=== PATIENT | male | born 1965 | race Caucasian/White ===

== ENCOUNTER → 2020-12-08 00:29 | Outpatient (CLI) | payer BC, SELFPAY ==
[2020-12-08 19:48] LABS: SARS-CoV-2 RNA PCR Negative
== END ==
PROVIDERS: PCP Family Medicine; Visit Provider Internal Medicine Gastroenterology
DX: Z01.812 Encounter for preprocedural laboratory examination (principal); Z20.822 Contact with and (suspected) exposure to COVID-19
CPT/HCPCS: C9803; U0003; U0005

== ENCOUNTER 2020-12-11 01:12 | Day surgery (SDC) | payer BC, SELFPAY ==
[2020-11-16 13:40] VITALS: BMI 33.7
--- NOTE | 2020-12-10 13:21 | WPDANESEPP ---
Anes - Eval Pre Procedure Procedure: Operation Date: 12/11/20 07:30 Proposed Procedures p Screening Colonoscopy - Mayank Greenfield MD Date/Time: 12/10/20 13:21 Pre Op Diagnosis: Neoplasm Screening Patient Data Age: 55 Gender: M Height: 1.68 m Weight: 95 kg Allergies Allergy/AdvReac Type Severity Reaction Status Date / Time Penicillins Allergy Severe Swelling Verified 11/16/20 13:54 of Lip/Tongue/Throat Home Medications Medication Instructions Recorded Confirmed Type fluoxetine 20 mg capsule 20 mg PO DAILY #90 cap 06/27/20 11/16/20 Rx trazodone 50 mg tablet 50 mg PO . q.h.s. #90 tablet 06/27/20 11/16/20 Rx zolpidem 10 mg tablet 10 mg PO . q.h.s. PRN #90 tablet 06/27/20 11/16/20 Rx tadalafil 20 mg tablet 20 mg PO DAILY PRN #10 tablet 07/24/20 11/16/20 Rx fluticasone propionate 50 1 spray NASAL BID #16 ml 10/31/20 11/16/20 Rx mcg/actuation nasal spray,suspension sodium,potassium,mag sulfates See Rx Instructions .ROUTE 11/07/20 Rx [Suprep Bowel Prep Kit] .COMPLEX #1 ml Patient hx anesthesia problems: none Family hx anesthesia problems: none PMFSH Past Medical History Medical History Abnormal fasting glucose BMI 33.0-33.9,adult Chronic anxiety Chronic depression Colon cancer screening Encounter for prostate cancer screening Encounter for wellness examination in adult GERD (gastroesophageal reflux disease) History of alcoholism Insomnia Male erectile dysfunction, unspecified Mixed hyperlipidemia Obesity (BMI 35.0-39.9 without comorbidity) Obstructive sleep apnea on CPAP Seasonal allergic rhinitis Strain of muscle of right groin region Surgical History Surgical History History of repair of rotator cuff (~2014) Family History Family History Mother Breast cancer Diabetes mellitus Father Heart disease Sibling Obesity Sibling Hypertension Diabetes mellitus Social History Social History Smoking status: Never smoker Alcohol intake: never Substance use: never Substance use type: does not use Spiritual care concerns: No Exam Day of Procedure 12/10/20 13:21
[2020-12-11 06:18] VITALS: BP 127/81; PULSE 67; RESP 18; TEMP 35.9; O2SAT 99; BMI 33.7
[2020-12-11] MEDS: LACTATED RINGERS 1,000 ML 150 ML IV CONT (06:31)
--- NOTE | 2020-12-11 06:40 | WPDANESEPPF ---
Anes - Initial Pre Proc Eval Procedure: Operation Date: 12/11/20 07:30 Proposed Procedures p Screening Colonoscopy - Mayank Greenfield MD Date/Time: 12/11/20 06:40 Surgeon: aMyank Greenfield MD Pre Op Diagnosis: Neoplasm Screening Patient Data Age: 55 Gender: M Height: 5 ft 6 in Weight: 95 kg Last Vital Signs Temp 35.9 C L 12/11/20 06:18 Pulse 67 12/11/20 06:18 Resp 18 12/11/20 06:18 BP 127/81 12/11/20 06:18 Pulse Ox 99 12/11/20 06:18 Allergies Allergy/AdvReac Type Severity Reaction Status Date / Time Penicillins Allergy Severe Swelling Verified 12/11/20 06:17 of Lip/Tongue/Throat Home Medications Medication Instructions Recorded Confirmed Type fluoxetine 20 mg capsule 20 mg PO DAILY #90 cap 06/27/20 11/16/20 Rx trazodone 50 mg tablet 50 mg PO . q.h.s. #90 tablet 06/27/20 11/16/20 Rx zolpidem 10 mg tablet 10 mg PO . q.h.s. PRN #90 tablet 06/27/20 11/16/20 Rx tadalafil 20 mg tablet 20 mg PO DAILY PRN #10 tablet 07/24/20 11/16/20 Rx fluticasone propionate 50 1 spray NASAL BID #16 ml 10/31/20 11/16/20 Rx mcg/actuation nasal spray,suspension sodium,potassium,mag sulfates See Rx Instructions .ROUTE 11/07/20 Rx [Suprep Bowel Prep Kit] .COMPLEX #1 ml Patient hx anesthesia problems: none Family hx anesthesia problems: none PMFSH Past Medical History Medical History Abnormal fasting glucose BMI 33.0-33.9,adult Chronic anxiety Chronic depression Colon cancer screening Encounter for prostate cancer screening Encounter for wellness examination in adult GERD (gastroesophageal reflux disease) History of alcoholism Insomnia Male erectile dysfunction, unspecified Mixed hyperlipidemia Obesity (BMI 35.0-39.9 without comorbidity) Obstructive sleep apnea on CPAP Seasonal allergic rhinitis Strain of muscle of right groin region Surgical History Surgical History History of repair of rotator cuff (~2014) Family History Family History Mother Breast cancer Diabetes mellitus Father Heart disease Sibling Obesity Sibling Hypertension Diabetes mellitus Social History Social History Smoking status: Never smoker Alcohol intake: never Substance use: never Substance use type: does not use Living arrangements: with family Spiritual care concerns: No Anes - Eval Final PreProcedure Day of Procedure 12/11/20 06:40 Patient weight: obese Heart: regular rate and rhythm Lungs: clear to auscultation Airway: Mallampati scale class II Neurological: alert and oriented Last oral intake: >/= 8 hours ASA classification: III Emergent: no Anesthetic plan: proceed Anesthesia type and monitoring: general GIVS and standard monitoring Informed Consent: The patient's anesthetic plan and its attendant risks and benefits were discussed with the patient/family/POA. Questions were solicited and answers provided to the satisfaction of the patient/family/POA.
--- NOTE | 2020-12-11 07:44 | PM.HPGS ---
History of Present Illness History of Present Illness Consent: Risks, benefits, and alternatives have been discussed and questions answered. Patient agrees to proceed with procedure. Chief complaint: Neoplasm Screening Narrative: Chon Williamson is a 55 year old male here for screening colonoscopy, last one about 15 years ago for anal fissure Review of Systems Constitutional: Constitutional: Denies headache(s) and Denies weakness Eyes: Eyes: Denies blurry vision ENT: Reports Normal hearing present, Denies headache(s) and Denies neck pain Cardiovascular: Cardiovascular: Denies chest pain and Denies dyspnea Respiratory: Respiratory: Denies dyspnea Gastrointestinal: Gastrointestinal: Reports no additional gastrointestinal complaints Genitourinary: Genitourinary: Denies dysuria Musculoskeletal: Musculoskeletal: Denies neck pain Integumentary/Breasts: Skin/Breast: Denies dry skin Neurologic: Reports Normal hearing present, Denies headache(s) and Denies weakness Psychiatric: Psychiatric: Denies anxiety Endocrine: Endocrine: Denies change in body appearance Hematologic/Lymphatic: Hematologic/Lymphatic: Denies easy bleeding Allergic/Immunologic: Allergic/Immunologic: Denies urticaria PMFSH Past Medical History Medical History Abnormal fasting glucose BMI 33.0-33.9,adult Chronic anxiety Chronic depression Colon cancer screening Encounter for prostate cancer screening Encounter for wellness examination in adult GERD (gastroesophageal reflux disease) History of alcoholism Insomnia Male erectile dysfunction, unspecified Mixed hyperlipidemia Obesity (BMI 35.0-39.9 without comorbidity) Obstructive sleep apnea on CPAP Seasonal allergic rhinitis Strain of muscle of right groin region Surgical History Surgical History History of repair of rotator cuff (~2014) Family History Family History Mother Breast cancer Diabetes mellitus Father Heart disease Sibling Obesity Sibling Hypertension Diabetes mellitus Social History Social History Smoking status: Never smoker Alcohol intake: never Substance use: never Substance use type: does not use Living arrangements: with family Spiritual care concerns: No Meds Home Medications and Allergies Home Medications Medication Instructions Recorded Confirmed Type fluoxetine 20 mg capsule 20 mg PO DAILY #90 cap 06/27/20 11/16/20 Rx trazodone 50 mg tablet 50 mg PO . q.h.s. #90 tablet 06/27/20 11/16/20 Rx zolpidem 10 mg tablet 10 mg PO . q.h.s. PRN #90 tablet 06/27/20 11/16/20 Rx tadalafil 20 mg tablet 20 mg PO DAILY PRN #10 tablet 07/24/20 11/16/20 Rx fluticasone propionate 50 1 spray NASAL BID #16 ml 10/31/20 11/16/20 Rx mcg/actuation nasal spray,suspension sodium,potassium,mag sulfates See Rx Instructions .ROUTE 11/07/20 Rx [Suprep Bowel Prep Kit] .COMPLEX #1 ml Allergies Allergy/AdvReac Type Severity Reaction Status Date / Time Penicillins Allergy Severe Swelling Verified 12/11/20 06:17 of Lip/Tongue/Throat Vital Signs Vital Signs - 24 hr 12/11/20 06:18 Temperature 96.7 F L Pulse Rate 67 Respiratory Rate 18 Blood Pressure 127/81 Pulse Oximetry 99 Exam Const: General: comfortable and no acute distress HENMT: General nose exam: Normal nares present Eyes: General: appearance normal, both eyes and all related structures Neck: Neck: no JVD Resp: Auscultation: clear to auscultation bilaterally Cardio: Rate: regular rate Rhythm: regular rhythm GI: Inspection: non-distended GI Palp: Yes Soft to palpation Skin: General skin exam: normal color Neuro: General: gait normal Speech: normal speech Extrem: General: normal to inspection Psych: Mental Status: m
[2020-12-11 08:01] VITALS: BP 98/66; PULSE 68; RESP 27; O2SAT 98
[2020-12-11 08:11] VITALS: BP 106/74; PULSE 70; RESP 23; O2SAT 99
[2020-12-11 08:21] VITALS: BP 111/73; PULSE 63; RESP 21; O2SAT 98
== END 2020-12-11 08:33 | disposition home or self-care (01) ==
PROVIDERS: PCP Family Medicine; Visit Provider Internal Medicine Gastroenterology
PROC: 0DJD8ZZ Inspection of Lower Intestinal Tract, Via Natural or Artificial Opening Endoscopic (ICD-10-PCS; CPT 45378; principal; 2020-12-11 07:30)
DX: Z12.11 Encounter for screening for malignant neoplasm of colon (principal); K57.30 Diverticulosis of large intestine without perforation or abscess without bleeding; K64.8 Other hemorrhoids; K21.9 Gastro-esophageal reflux disease without esophagitis; E78.2 Mixed hyperlipidemia; E66.9 Obesity, unspecified; G47.33 Obstructive sleep apnea (adult) (pediatric); J30.2 Other seasonal allergic rhinitis; G47.00 Insomnia, unspecified; F10.21 Alcohol dependence, in remission; N52.9 Male erectile dysfunction, unspecified; F41.9 Anxiety disorder, unspecified; F32.9 Major depressive disorder, single episode, unspecified; Z68.33 Body mass index [BMI] 33.0-33.9, adult
CPT/HCPCS: 45378; J2704; J7120

== ENCOUNTER → 2021-07-29 14:53 | Outpatient (CLI) | payer BC, SELFPAY ==
--- NOTE | ~2021-07-29 | XR_ITS ---
XR shoulder RT min 2V DATE: 07/29/2021 15:09 INDICATION: Right shoulder pain since September. Doing pushups. TECHNIQUE: 4 views COMPARISON: None FINDINGS: There is degenerative spurring at the acromioclavicular joint. Normal alignment at the acromioclavicular and glenohumeral joints. No fracture or dislocation, perios teal reaction or bone destruction or abnormal soft tissue calcification of the right shoulder. IMPRESSION: Degenerative change at the right acromioclavicular joint Reviewed, dictated and finalized at location A.
== END ==
PROVIDERS: PCP Family Medicine; Visit Provider Family Medicine
DX: M19.011 Primary osteoarthritis, right shoulder (principal)
CPT/HCPCS: 73030

== ENCOUNTER 2023-11-09 08:06 | Emergency (ER) | payer BC, SELFPAY ==
[2023-11-09 08:29] VITALS: BP 123/94; PULSE 83; RESP 18; TEMP 36.3; O2SAT 100
--- NOTE | 2023-11-09 09:25 | ED.URI ---
HPI - URI/Sore Throat General Chief Complaint: Upper Respiratory Infection Stated Complaint: flu like symptoms Time Seen by Provider: 11/09/23 09:25 Source: patient and RN notes reviewed Mode of arrival: ambulatory Limitations: no limitations History of Present Illness HPI Narrative: 58-year-old male presented for complaint sore throat, nasal congestion, cough and headache for almost 1 week. Denies shortness of breath, wheezing, nausea vomiting, diarrhea, fevers. Taking [id number] medicine without relief. Endorses exposure to RSV. MD elicited complaint: cough Related Data Home Medications Medication Instructions Recorded Confirmed mometasone 0.1 % topical cream 1 applic topical DAILY skin 11/09/23 irritation zolpidem 12.5 mg tablet,extended 12.5 mg PO QHS insomnia 11/09/23 release,multiphase (Ambien CR) Allergies Allergy/AdvReac Type Severity Reaction Status Date / Time Penicillins Allergy Severe Swelling Verified 11/09/23 08:43 of Lip/Tongue/Throat Review of Systems Review of Systems: CONSTITUTIONAL: Endorses malaise, denies chills, sweats, fever EYES: Denies visual changes, redness, or discharge ENT: Reports rhinorrhea, congestion, sore throat CARDIOVASCULAR: Denies chest pain, palpitations, edema RESPIRATORY: Reports cough, post nasal drainage. Denies dyspnea GASTROINTESTINAL: Denies abdominal pain, nausea, vomiting, diarrhea SKIN: Denies rash or itching MUSCULOSKELETAL: denies myalgia PMFSH Past Medical History Medical History Abnormal fasting glucose Fasting glucose 106 with hemoglobin A1c 5.2 on 09/16/2022. Bilateral shoulder pain Bipolar 1 disorder (~12/18/22) BMI 31.0-31.9,adult BMI 32.0-32.9,adult BMI 33.0-33.9,adult BMI 34.0-34.9,adult BMI 35.0-35.9,adult BMI 36.0-36.9,adult Chronic anxiety Chronic depression Colon cancer screening Normal colonoscopy 12/11/2020 Edema, peripheral Encounter for prostate cancer screening PSA 0.78 on 09/16/2022. Encounter for screening colonoscopy Encounter for wellness examination in adult GERD (gastroesophageal reflux disease) History of alcoholism Insomnia Male erectile dysfunction, unspecified Mixed hyperlipidemia total cholesterol 179, triglycerides 65, HDL 40, LDL 117 with ratio 3.9 on 09/16/2022. Obesity (BMI 30-39.9) Obesity (BMI 30.0-34.9) Obesity (BMI 35.0-39.9 without comorbidity) Obstructive sleep apnea on CPAP Right shoulder pain Seasonal allergic rhinitis Seborrhea ear canals Strain of muscle of right groin region Tinea pedis of left foot (~05/2023) 1st [employer] Surgical History Surgical History History of repair of rotator cuff (~2014) Left shoulder arthroscopic repair with DCE Family History Family History Mother Breast cancer Diabetes mellitus Father Heart disease Sibling Obesity Sibling Hypertension Diabetes mellitus Social History Social History Smoking status: Never smoker Alcohol intake: never Substance use: never Substance use type: does not use Lack of Transportation: No Lack of Food: Never True Current Housing: I Have Housing Concerned About Future Housing: No Difficulty Paying Gas/Electric Bills: No Difficulty Paying for Meds: No Currently Unemployed: No Education: Bachelor's Degree Difficulty w/ Childcare or Family Care: No Living arrangements: with family Additional living arrangements comments: Jose R phillips, sales service promoter Occupation/Education: occupation Gender identity (if verbalized by the patient): Male Spiritual care concerns: No Exam Narrative: GENERAL: mildly Ill-appearing, nontoxic no acute distress. EYES: PERRLA, conjunctivae clear ENT: Mucous membranes moist. TM pearly lucio with d
== END 2023-11-09 09:44 | disposition home or self-care (01) ==
PROVIDERS: Emergency Provider Nurse Practitioner Family; PCP Family Medicine
DX: J06.9 Acute upper respiratory infection, unspecified (principal); Z20.822 Contact with and (suspected) exposure to COVID-19; K21.9 Gastro-esophageal reflux disease without esophagitis; E78.2 Mixed hyperlipidemia; G47.33 Obstructive sleep apnea (adult) (pediatric); E66.9 Obesity, unspecified; Z68.35 Body mass index [BMI] 35.0-35.9, adult
CPT/HCPCS: 87081; 87426; 87804; 87880; 99213; G0463